=== PATIENT | female | born 1965 | race Caucasian/White ===

== ENCOUNTER 2019-12-25 13:21 | Emergency (ER) | payer BC ==
[~2019-12-25] VITALS: Ht 162.6 cm; Wt 68.0 kg
[2019-12-25] MEDS ORDERED: IV NORMAL SALINE 1,000ML 1,000 ML IV SCH (13:40)
--- NOTE | 2019-12-25 13:47 | EKG ---
[address] [address] Test Date: 2019-12-25 Test Time: 13:25:01 Pat Name: YADIRA AMAYA Department: Room: Gender: F Power Line Installer: : 1965 Requested By: NEETU ROMAN Order Number: [id number] Reading MD: Danilo Vázquez Measurements Intervals [place] Rate: 81 P: 6 [place]: 146 QRS: 61 QRSD: 80 T: 54 QT: 358 QTc: 421 Interpretive Statements SINUS RHYTHM NORMAL ECG RI6.02 No previous ECG available for comparison Electronically Signed On 12-30-2019 11:30:07 BUSHER HELPER by Danilo Vázquez
[2019-12-25 13:56] LABS: BASO # 0.1 x10^3/uL (0.0-0.2); BASO % 1 % (0-3); EOS # 0.1 x10^3/uL (0.0-0.7); EOS % 1 % (0-3); HEMATOCRIT 43.4 % (36.0-47.0); HEMOGLOBIN 14.3 g/dL (12.0-15.5); LYMPH # 3.5 x10^3/uL (1.0-4.8); LYMPH % 36 % (24-48); MEAN CORPUSCULAR HEMOGLOBIN 29 pg (25-35); MEAN CORPUSCULAR HGB CONC 33 g/dL (31-37); MEAN CORPUSCULAR VOLUME 89 fL (79-100); MONO # 0.7 x10^3/uL (0.0-1.1); MONO % 8 % (0-9); NEUT # 5.3 x10^3uL (1.8-7.7); NEUT % 54 % (31-73); PLATELET COUNT 294 x10^3/uL (140-400); RED BLOOD COUNT 4.85 x10^6/uL (3.50-5.40); RED CELL DISTRIBUTION WIDTH 14.3 % (11.5-14.5); WHITE BLOOD COUNT 9.8 x10^3/uL (4.0-11.0)
[2019-12-25 14:00] LABS: CALCIUM 9.9 mg/dL (8.5-10.1); CREATININE 1.1 mg/dL (0.6-1.0); GFR 51.4; POTASSIUM 3.7 mmol/L (3.5-5.1)
--- NOTE | 2019-12-25 14:09 | RAD ---
EXAM: CHEST 1 VIEW History: Palpitations COMPARISON: None available. TECHNIQUE: Single portable radiograph of the chest FINDINGS: The cardiac silhouette is unremarkable. The lungs are clear bilaterally. The costophrenic sulci are clear and well demarcated. IMPRESSION: No radiographic evidence of an acute cardiopulmonary process. Electronically signed by: Teodoro Klein MD (12/25/2019 2:06 PM) [id number]
[2019-12-25 14:16] LABS: ALBUMIN 4.1 g/dL (3.4-5.0); ALBUMIN/GLOBULIN RATIO 1.1 (1.0-1.7); MAGNESIUM 2.2 mg/dL (1.8-2.4); TOTAL BILIRUBIN 0.2 mg/dL (0.2-1.0); TOTAL PROTEIN 7.8 g/dL (6.4-8.2)
[2019-12-25 14:23] LABS: BARBITURATES NEG (NEG); BENZODIAZEPINES NEG (NEG); CANNABINOIDS NEG (NEG); COCAINE NEG (NEG); METHADONE NEG (NEG); OPIATES NEG (NEG); PHENCYCLIDINE NEG (NEG)
[2019-12-25 14:27] LABS: AMPHETAMINE/METHAMPHETAMINE NEG (NEG)
[2019-12-25 14:36] LABS: BACTERIA,URINE FEW /HPF (0-FEW); BILIRUBIN,URINE NEG (NEG); CLARITY,URINE CLEAR; COLOR,URINE YELLOW; GLUCOSE,URINE NEG (NEG); NITRITE,URINE NEG (NEG); RBC,URINE 0 /HPF (0-2); SQUAMOUS EPITHELIAL CELL,UR FEW /LPF; UROBILINOGEN,URINE 0.2 mg/dL (0.2 mg/dL)
--- NOTE | 2019-12-25 16:13 | PHYS DOC ---
Past History Past Medical History: Hypothyroid Past Surgical History: Other Additional Past Surgical Histo: Breast augmentation, bilateral Alcohol Use: Occasionally Adult General Chief Complaint Chief Complaint: RAPID HEART RATE HPI HPI Patient is a 54-year-old female patient presenting to the ED today complaining of rapid heart rate, patient states she was driving to [employer] and felt her heart was racing, she states she felt like laying down, but got to [employer] and her symptoms worsened hence she came to the ED. Denies any chest pain, denies any cough or shortness of breath. Denies any fever. Review of Systems Review of Systems Constitutional: Denies fever or chills [] Eyes: Denies change in visual acuity, redness, or eye pain [] HENT: Denies nasal congestion or sore throat [] Respiratory: Denies cough or shortness of breath [] Cardiovascular: report rapid heart rate GI: Denies abdominal pain, nausea, vomiting, bloody stools or diarrhea [] : Denies dysuria or hematuria [] Musculoskeletal: Denies back pain or joint pain [] Integument: Denies rash or skin lesions [] Neurologic: Denies headache, focal weakness or sensory changes [] All other systems were reviewed and found to be within normal limits, except as documented in this note. Current Medications Current Medications Current Medications Medications (Trade) Dose Ordered Sig/Nupur Start Time Stop Time Status Last Admin Dose Admin Sodium Chloride 1,000 ml @ 1,000 mls/hr Q1H 12/25/19 13:40 12/25/19 14:39 DC 12/25/19 13:58 1,000 MLS/HR Allergies Allergies Allergies Coded Allergies Type Severity Reaction Last Updated Verified Sulfa (Sulfonamide Antibiotics) Allergy Unknown hives 12/25/19 Yes Physical Exam Physical Exam Constitutional: Well developed, well nourished, no acute distress, non-toxic appearance. [] HENT: Normocephalic, atraumatic, bilateral external ears normal, oropharynx moist, no oral exudates, nose normal. [] Eyes: PERRLA, EOMI, conjunctiva normal, no discharge. [] Neck: Normal range of motion, no tenderness, supple, no stridor. [] Cardiovascular:Heart rate regular rhythm, no murmur [] Lungs & Thorax: Bilateral breath sounds clear to auscultation [] Abdomen: Bowel sounds normal, soft, no tenderness, no masses, no pulsatile masses. [] Skin: Warm, dry, no erythema, no rash. [] Back: No tenderness, no CVA tenderness. [] Extremities: No tenderness, no cyanosis, no clubbing, ROM intact, no edema. [] Neurologic: Alert and oriented X 3, normal motor function, normal sensory function, no focal deficits noted. [] Psychologic: Affect normal, judgement normal, mood normal. [] Current Patient Data Vital Signs Vital Signs Date Time Temp Pulse Resp B/P (MAP) Pulse Ox O2 Delivery O2 Flow Rate FiO2 12/25/19 13:25 98.4 80 16 127/70 (89) 98 Room Air Lab Results Laboratory Tests Test 12/25/19 13:33 12/25/19 13:52 White Blood Count 9.8 x10^3/uL (4.0-11.0) Red Blood Count 4.85 x10^6/uL (3.50-5.40) Hemoglobin 14.3 g/dL (12.0-15.5) Hematocrit 43.4 % (36.0-47.0) Mean Corpuscular Volume 89 fL (79-100) Mean Corpuscular Hemoglobin 29 pg (25-35) Mean Corpuscular Hemoglobin Concent 33 g/dL (31-37) Red Cell Distribution Width 14.3 % (11.5-14.5) Platelet Count 294 x10^3/uL (140-400) Neutrophils (%) (Auto) 54 % (31-73) Lymphocytes (%) (Auto) 36 % (24-48) Monocytes (%) (Auto) 8 % (0-9) Eosinophils (%) (Auto) 1 % (0-3) Basophils (%) (Auto) 1 % (0-3) Neutrophils # (Auto) 5.3 x10^3uL (1.8-7.7) Lymphocytes # (Auto) 3.5 x10^3/uL (1.0-4.8) Monocytes # (Auto) 0.7 x10^3/uL (0.0-1.1) Eosinophils # (Auto) 0.1 x10^3/uL (0.0-0.7) Basophils # (Auto) 0.1 x10^3/uL (0.0-0.2) Prothrombin Time 9.8 SEC (9.4-11.4) Prothrombin Time INR 0.9 (0.9-1.1) Activated Partial Thromboplast Time 24 SEC (23-33) Sodium Level 139 mmol/L (136-145) Potassium Level 3.7 mmol/L (3.5-5.1) Chloride Level 102 mmol/L (98-107) Carbon Dioxide Level 26 mmol/L (21-32) Anion Gap 11 (6-14) Blood Urea Nitrogen 13 mg/dL (7-20) Creatinine 1.1 mg/dL (0.6-1.0) H Estimated GFR (Cockcroft-Gault) 51.4 BUN/Creatinine Ratio 12 (6-20) Glucose Level 117 mg/dL (70-99) H Calcium Level 9.9 mg/dL (8.5-10.1) Magnesium Level 2.2 mg/dL (1.8-2.4) Total Bilirubin 0.2 mg/dL (0.2-1.0) Aspartate Amino Transferase (AST) 20 U/L (15-37) Alanine Aminotransferase (ALT) 22 U/L (14-59) Alkaline Phosphatase 82 U/L (46-116) Creatine Kinase 142 U/L (26-192) Creatine Kinase MB (Mass) 1.9 ng/mL (0.0-3.6) Creatine Kinase MB Relative Index 1.3 % (0-4) Troponin I Quantitative < 0.017 ng/mL (0-0.055) FP-Dxa-X-Type Natriuretic Peptide 29 pg/mL (0-124) Total Protein 7.8 g/dL (6.4-8.2) Albumin 4.1 g/dL (3.4-5.0) Albumin/Globulin Ratio 1.1 (1.0-1.7) Lipase 94 U/L (73-393) Urine Collection Type Unknown Urine Color Yellow Urine Clarity Clear Urine pH 6.0 Urine Specific [place] 1.015 Urine Protein Neg (NEG-TRACE) Urine Glucose (UA) Neg mg/dL (NEG) Urine Ketones (Stick) Neg mg/dL (NEG) Urine Blood Neg (NEG) Urine Nitrite Neg (NEG) Urine Bilirubin Neg (NEG) Urine Urobilinogen Dipstick 0.2 mg/dL (0.2 mg/dL) Urine Leukocyte Esterase Small (NEG) Urine RBC 0 /HPF (0-2) Urine WBC 1-4 /HPF (0-4) Urine Squamous Epithelial Cells Few /LPF Urine Bacteria Few /HPF (0-FEW) Urine Opiates Screen Neg (NEG) Urine Methadone Screen Neg (NEG) Urine Barbiturates Neg (NEG) Urine Phencyclidine Screen Neg (NEG) Urine Amphetamine/Methamphetamine Neg (NEG) Urine Benzodiazepines Screen Neg (NEG) Urine Cocaine Screen Neg (NEG) Urine Cannabinoids Screen Neg (NEG) Urine Ethyl Alcohol Neg (NEG) EKG EKG [address] Valencia sinus rhythm normal axis and interval HR 84 no STEMI Radiology/Procedures Radiology/Procedures []PROCEDURE: PORTABLE CHEST 1V EXAM: CHEST 1 VIEW History: Palpitations COMPARISON: None available. TECHNIQUE: Single portable radiograph of the chest FINDINGS: The cardiac silhouette is unremarkable. The lungs are clear bilaterally. The costophrenic sulci are clear and well demarcated. IMPRESSION: No radiographic evidence of an acute cardiopulmonary process. Electronically signed by: Teodoro Klein MD (12/25/2019 2:06 PM) [id number] DICTATED AND SIGNED BY: TEODORO KLEIN MD DATE: 12/25/19 1406 CC: NEETU ROMAN APRN; VIKAHS SALINAS MD ~ Heart Score Risk Factors: Risk Factors: DM, Current or recent (<one month) smoker, HTN, HLP, family history of CAD, obesity. Risk Scores: Risk Factors: DM, Current or recent (<one month) smoker, HTN, HLP, family history of CAD, obesity. Course & Med Decision Making Course & Med Decision Making Pertinent Labs and Imaging studies reviewed. (See chart for details) This is a 54-year-old female patient presenting to the ED today complaining of palpitations that she noted while driving to [employer]. Patient arrives in the ED with heart rates in the 80s, temperature 98.4, respirations 16, blood pressure 127/70, O2 sats 98% on room air, EKG is negative, CBC, CMP with no acute findings. Drug screen is negative. Chest x-ray is negative. TSH is pending it was signed out. Considering her vitals are stable with no acute findings we will send patient home and she can follow-up with her own PCP Vega Disclaimer Dragon Disclaimer This electronic medical record was generated, in whole or in part, using a voice recognition dictation system. Departure Departure: Impression: Primary Impression: Palpitations Disposition: 01 DC HOME SELF CARE/HOMELESS Condition: STABLE Referrals: VIKASH SALINAS MD (PCP) follow up in one week Patient Instructions: Palpitations, [id number] Additional Instructions: You were evaluated in the emergency room, your work-up was negative for any acute findings. Please follow-up with your own doctor in 1 to 2 weeks, come back to the ED at any point symptoms worsen. NEETU ROMAN OFFICE MACHINE SERVICER Dec 25, 2019 16:13
[2019-12-25 16:29] VITALS: BP 115/67
== END 2019-12-25 16:34 | disposition home or self-care (01) ==
LOC: ER 13:21
DX: R00.2 Palpitations (principal); E03.9 Hypothyroidism, unspecified; Z88.2 Allergy status to sulfonamides
CPT/HCPCS: 36415; 71045; 80053; 80307; 81001; 82553; 83690; 83735; 83880; 84443; 84484; 85025; 85610; 85730; 87086; 93005; 96360; 99285; J7030

== ENCOUNTER 2020-10-04 19:50 | Emergency (ER) | payer BC ==
[~2020-10-04] VITALS: Ht 160 cm; Wt 72.4 kg
--- NOTE | 2020-10-04 20:24 | PHYS DOC ---
Past History Past Medical History: Hypothyroid (AUDREY BEAN APRN) Past Surgical History: Other Additional Past Surgical Histo: Breast augmentation, bilateral (AUDREY BEAN APRN) Alcohol Use: Occasionally (AUDREY BEAN APRN) General Adult EDM: Chief Complaint: SHORTNESS OF BREATH HPI: HPI: Patient is a 55-year-old female who presents to the ER for shortness of breath, nonproductive cough and generalized chest pressure with inspiration. Patient reports that her chest pressure is improved when she takes a puff of her albuterol inhaler. Patient was tested for Covid and was negative on . She saw her primary care provider on Sunday was given a prescription for prednisone in a rescue inhaler, she reports that she is feeling better since getting prescribed the prednisone and albuterol. She denies sick exposures, fever, nausea, vomiting. Patient is not vaccinated for COVID-19 (AUDREY BEAN APRN) Review of Systems: Review of Systems: 14 body systems of the review of systems have been reviewed. See HPI for pertinent positive and negative responses, otherwise all other systems are negative, nonpertinent or noncontributory (AUDREY BEAN APRN) Allergies: Allergies: Allergies Coded Allergies Type Severity Reaction Last Updated Verified Sulfa (Sulfonamide Antibiotics) Allergy Unknown hives 12/25/19 Yes (AUDREY BEAN APRN) Physical Exam: PE: Constitutional: Well developed, well nourished, no acute distress, non-toxic appearance. [] HENT: Normocephalic, atraumatic, bilateral external ears normal, oropharynx moist, no oral exudates, nose normal. [] Eyes: PERRL, EOMI, conjunctiva normal, no discharge. [] Neck: Normal range of motion, no stridor Cardiovascular:Heart rate regular rhythm, no murmur [] Lungs & Thorax: Bilateral breath sounds clear to auscultation [] Abdomen: Bowel sounds normal, soft, no tenderness, no masses, no pulsatile masses. [] Skin: Warm, dry, no erythema, no rash. [] Back: Normal range of motion Extremities: No tenderness, no cyanosis, no clubbing, ROM intact, no edema. [] Neurologic: Alert and oriented X 3, normal motor function, normal sensory function, no focal deficits noted. [] Psychologic: Affect normal, judgement normal, mood normal. [] (AUDREY BEAN APRN) EKG: EKG: [] (AUDREY BEAN APRN) Radiology/Procedures: Radiology/Procedures: PROCEDURE: PORTABLE CHEST 1V XR CHEST 1V History: Short of air. Comparison: 12/25/2019 Technique: AP radiograph of the chest. Findings: The lungs are adequately and symmetrically inflated. No airspace consolidation, pleural effusion or pneumothorax. The cardiomediastinal silhouette and pulmonary vasculature are within normal limits. No acute osseous abnormality. Soft tissues are unremarkable. Impression: 1. No acute cardiopulmonary process. Electronically signed by: Donn Hui MD (10/04/2020 8:38 PM) [facility] DICTATED AND SIGNED BY: DONN HUI MD DATE: 10/04/202037 CC[facility]; AUDREY BEAN APRN ~MTH0 0 [] (AUDREY BEAN APRN) Heart Score: C/O Chest Pain: No Risk Factors: Risk Factors: DM, Current or recent (<one month) smoker, HTN, HLP, family history of CAD, obesity. Risk Scores: Score 0 - 3: 2.5% MACE over next 6 weeks - Discharge Home Score 4 - 6: 20.3% MACE over next 6 weeks - Admit for Clinical Observation Score 7 - 10: 72.7% MACE over next 6 weeks - Early Invasive Strategies (AUDREY BEAN APRN) Course & Med Decision Making: Course & Med Decision Making Pertinent Labs and Imaging studies reviewed. (See chart for details) Patient is a 55-year-old female who presents to the ER for shortness of breath, nonproductive cough, and generalized chest tightness has been going on since . Patient is Covid negative. Patient is concerned that she has pneumonia and is requesting a chest x-ray. I spoke with patient about obtaining blood work and an EKG to rule out a cardiac cause for her chest wall pain the patient reports that she believes that this is because of her lungs and chose not to have blood work and an EKG performed. Due to patient's chest tightness improving with the albuterol inhaler and worsening with inspiration I do believe that this chest pain is pleuritic. A chest x-ray was performed and it showed no acute findings. Patient lung sounds were clear and she is not hypoxic or labored. Patient treated with a DuoNeb treatment in the ER, she reported improvement in her symptoms following the treatment. I discussed with patient all findings and diagnostic testing as well as the need to follow-up with PCP for further evaluation and treatment or return to the ER if any new or worsening symptoms. Strict return precautions were also discussed at length. Patient voiced understanding and agreement with the plan. Patient is hemodynamically stable at the time of disposition. (AUDREY BEAN APRN) Dragon Disclaimer: Vega Disclaimer: This electronic medical record was generated, in whole or in part, using a voice recognition dictation system. (AUDREY BEAN APRN) Departure Departure: Impression: Primary Impression: Shortness of breath Additional Impression: Pleuritic chest pain Disposition: HOME / SELF CARE / HOMELESS Condition: GOOD Referrals: EVARISTO BACK (PCP) Patient Instructions: Shortness of Breath Additional Instructions: You were seen in the ER today for shortness of breath and a nonproductive cough. A chest x-ray was performed and it was negative for any acute findings. Continue taking your prednisone and albuterol as previously prescribed. You were treated with a DuoNeb treatment in the ER. Your physical exam was reassuring and your vital signs were stable. Please follow-up with your primary care provider tomorrow regarding your ER visit. Please return to the ER if you develop worsening of your shortness of breath or chest pain, fevers refractory to treatment, difficulty maintaining secretions, uncontrollable nausea or vomiting. EMERGENCY DEPARTMENT GENERAL DISCHARGE INSTRUCTIONS Thank you for coming to [facility] (ED) today and trusting us with you care. We trust that you had a positivie experience in our Emergency Department. If you wish to speak to the department management, you may call the director at [phone]. YOUR FOLLOW UP INSTRUCTIONS ARE FOLLOWS: 1. Do you have a private Doctor? If you do not have a private doctor, please ask for a resource list of physicians or clinics that may be able to assist you with follow up care. 2. The Emergency Physician has interpreted your x-rays. The X-Ray specialist will also review them. If there is a change in the findings, you will be notified in 48 hours when at all possible. 3. A lab test or culture has been done, your results will be reviewed and you will be notified if you need a change in treatment. ADDITIONAL INSTRUCTIONS AND INFORMATION: 1. Your care today has been supervised by a physician who is specially trained in emergency care. Many problems require more than one evaluation for a complete diagnosis and treatment. We recommend that you schedule your follow up appointment as recommended to ensure complete treatment of you illness or injury. If you are unable to obtain follow up care and continue to have a problem, or if your condition worsens, we recommend that you return to the ED. 2. We are not able to safely determine your condition over the phone nor are we able to give sound medical advice over the phone. For these safety reasons, if you call for medical advice we will ask you to come to the ED for further evaluation. 3. If you have any questions regarding these discharge instructions please call the ED at [phone]. SAFETY INFORMATION: In the interest of safety, wellness, and injury prevention; we encourage you to wear your sealbelt, if you smoke; quite smoking, and we encourage family to use a protective helmet for bicycling and other sporting events that present an increased risk for head injury. IF YOUR SYMPTOMS WORSEN OR NEW SYMPTOMS DEVELOP, OR YOU HAVE CONCERNS ABOUT YOUR CONDITION; OR IF YOUR CONDITION WORSENS WHILE YOU ARE WAITING FOR YOUR FOLLOW UP APPOINTMENT; EITHER CONTACT YOUR PRIMARY CARE DOCTOR, THE PHYSICIAN WHOSE NAME AND NUMBER YOU WERE GIVEN, OR RETURN TO THE ED IMMEDIATELY. Attending Signature Attending Signature I have reviewed the PA/MEDICAL DEVICE ENGINEER's note and plan of care. I was available for consultation as needed during the patient's visit in the emergency department. I agree with the clinical impression, plan, and disposition. (ANNA MARIE SIERRA DO) AUDREY BEAN APRN Oct 04, 2020 20:24 ANNA MARIE SIERRA DO Oct 04, 2020 22:06
[2020-10-04] MEDS: IPRATRPIUM/ALBUTEROL 0.5/2.5MG 3 ML NEBU. NEB ONE (20:39)
--- NOTE | 2020-10-04 20:41 | RAD ---
XR CHEST 1V History: Short of air. Comparison: 12/25/2019 Technique: AP radiograph of the chest. Findings: The lungs are adequately and symmetrically inflated. No airspace consolidation, pleural effusion or p neumothorax. The cardiomediastinal silhouette and pulmonary vasculature are within normal limits. No acute osseous abnormality. Soft tissues are unremarkable. Impression: 1. No acute cardiopulmonary process. Electronically signed by: Donn Miller MD (10/04/2020 8:38 PM) [facility]
[2020-10-04 21:05] VITALS: BP 118/61
== END 2020-10-04 21:07 | disposition home or self-care (01) ==
LOC: ER 19:50
DX: R06.02 Shortness of breath (principal); R07.81 Pleurodynia; E03.9 Hypothyroidism, unspecified; Z88.2 Allergy status to sulfonamides
CPT/HCPCS: 71045; 94640; 99283